=== PATIENT | female | born 1935 | race Caucasian/White ===

== ENCOUNTER 2018-12-12 11:44 | Emergency (ER) | payer MEDICARE, BC ==
[~2018-12-12] VITALS: Ht 172.7 cm; Wt 65.9 kg
[~2018-12-12 11:44] MED LIST: ACET325T33 PO; COUMADIN; DILTIAZEM; IBUP-1542 PO
[2018-12-12 11:48] VITALS: Ht 172.7 cm; Wt 65.9 kg
[2018-12-12] MEDS ORDERED: ACETAMINOPHEN 500 MG TAB PO STA (14:18)
[2018-12-12] MEDS ORDERED: KETOROLAC 30 MG INJ IM STA (14:18)
[2018-12-12 14:55] VITALS: BP 131/61; PULSE 71; RESP 18
== END 2018-12-12 15:01 | disposition home or self-care (01) ==
LOC: FTE 11:44
DX: S32.010A Wedge compression fracture of first lumbar vertebra, initial encounter for closed fracture (principal); S09.93XA Unspecified injury of face, initial encounter; S05.11XA Contusion of eyeball and orbital tissues, right eye, initial encounter; W06.XXXA Fall from bed, initial encounter; Y92.9 Unspecified place or not applicable
CPT/HCPCS: 70486; 72100; 96372; 99285; J1885